=== PATIENT | female | born 1960 | race Caucasian/White ===

== ENCOUNTER 2020-06-21 19:01 | Inpatient (IN) ==
[2020-06-22] MEDS: Furosemide 40 MG TABLET PO SCH (22:19)
[2020-06-22] MEDS: *HR* OxyCODONE Immed Rel 5 MG TABLET PO PRN (22:19)
[2020-06-22] MEDS: lamoTRIgine 100 MG TABLET PO SCH (22:19)
[2020-06-22] MEDS: Carbidopa/Levodopa ER 50/200 TABLET PO SCH (22:19)
[2020-06-23] MEDS: Baclofen 10 MG TABLET PO PRN ×2 (00:59→13:04)
[2020-06-23] MEDS: lamoTRIgine 100 MG TABLET PO SCH ×2 (08:06→19:41)
[2020-06-23] MEDS: Aspirin Enteric Coated 81 MG Tablet PO SCH (08:06)
[2020-06-23] MEDS: Cholecalciferol (D-3) 1,000 UNIT (25MCG) TABLET PO SCH (08:07)
[2020-06-23] MEDS: PARoxetine 20 MG TABLET PO SCH (08:07)
[2020-06-23] MEDS: *HR* OxyCODONE Immed Rel 5 MG TABLET PO PRN ×2 (08:07→17:22)
[2020-06-23] MEDS: Ascorbic Acid 500 MG TABLET PO SCH ×2 (08:07→16:24)
[2020-06-23] MEDS: Furosemide 40 MG TABLET PO SCH ×2 (08:07→19:41)
[2020-06-23] MEDS: Zinc Sulfate 220 MG CAPSULE PO SCH (08:07)
[2020-06-23] MEDS: Carbidopa/Levodopa ER 50/200 TABLET PO SCH ×2 (08:08→19:41)
[2020-06-23 08:33] LABS: Hematocrit 34.6 % (35.3-44.9); Hemoglobin 11.1 g/dL (11.5-15.4); Mean Corpuscular HGB Conc 32.1 g/dL (31.6-35.5); Mean Corpuscular Hemoglobin 31.2 pg (28.0-33.3); Mean Corpuscular Volume 97.2 fL (83.0-100.0); Mean Platelet Volume 8.5 fL (9.4-12.4); Platelet Count 248 K/mcL (140-400); Red Blood Count 3.56 M/mcL (3.82-4.97); Red Cell Distribution Width 15.7 % (11.5-14.5)
[2020-06-23 08:57] LABS: BUN/Creatinine Ratio 16 (6-26); Blood Urea Nitrogen 8 mg/dL (6-20); Calcium 9.2 mg/dL (8.6-10.3); Carbon Dioxide 34 mEq/L (23-29); Chloride 102 mEq/L (98-107); Glucose 89 mg/dL (70-105); Osmolality,Calculated 288 (280-300); Sodium 140 mEq/L (136-145); eGFR For African Americans > 60 (> 60); eGFR For Non-African Americans > 60 (> 60)
[2020-06-23] MEDS: Multivit/Ca/Min/Fe/FA 1 TAB TABLET PO SCH (13:04)
[2020-06-23] MEDS: Baclofen 10 MG TABLET PO SCH ×2 (14:05→19:40)
[2020-06-24] MEDS: *HR* OxyCODONE Immed Rel 5 MG TABLET PO PRN ×3 (01:24→18:05)
[2020-06-24] MEDS: Carbidopa/Levodopa ER 50/200 TABLET PO SCH ×2 (08:19→21:22)
[2020-06-24] MEDS: Cholecalciferol (D-3) 1,000 UNIT (25MCG) TABLET PO SCH (08:19)
[2020-06-24] MEDS: Aspirin Enteric Coated 81 MG Tablet PO SCH (08:19)
[2020-06-24] MEDS: lamoTRIgine 100 MG TABLET PO SCH ×2 (08:19→21:23)
[2020-06-24] MEDS: Zinc Sulfate 220 MG CAPSULE PO SCH (08:19)
[2020-06-24] MEDS: Baclofen 10 MG TABLET PO SCH ×3 (08:19→21:23)
[2020-06-24] MEDS: PARoxetine 20 MG TABLET PO SCH (08:20)
[2020-06-24] MEDS: Ascorbic Acid 500 MG TABLET PO SCH ×2 (08:20→16:55)
[2020-06-24] MEDS: Furosemide 40 MG TABLET PO SCH ×2 (09:38→16:55)
[2020-06-24] MEDS: *HR* Enoxaparin 40 MG/0.4 ML SYRINGE SQ SCH (10:19)
[2020-06-24] MEDS: Multivit/Ca/Min/Fe/FA 1 TAB TABLET PO SCH (12:11)
[2020-06-24] MEDS ORDERED: *HR* Heparin 5,000 UNIT/ML VIAL SQ SCH (14:00)
[2020-06-24] MEDS: Sennosides/Docusate Sodium TABLET PO PRN (21:22)
[2020-06-25] MEDS: *HR* OxyCODONE Immed Rel 5 MG TABLET PO PRN ×3 (02:19→20:34)
[2020-06-25] MEDS: *HR* Enoxaparin 40 MG/0.4 ML SYRINGE SQ SCH (05:04)
[2020-06-25] MEDS: Baclofen 10 MG TABLET PO SCH ×3 (07:57→20:34)
[2020-06-25] MEDS: lamoTRIgine 100 MG TABLET PO SCH ×2 (07:57→20:34)
[2020-06-25] MEDS: Zinc Sulfate 220 MG CAPSULE PO SCH (07:57)
[2020-06-25] MEDS: Ascorbic Acid 500 MG TABLET PO SCH ×2 (07:57→16:49)
[2020-06-25] MEDS: Cholecalciferol (D-3) 1,000 UNIT (25MCG) TABLET PO SCH (07:58)
[2020-06-25] MEDS: Furosemide 40 MG TABLET PO SCH ×2 (07:59→16:49)
[2020-06-25] MEDS: Aspirin Enteric Coated 81 MG Tablet PO SCH (07:59)
[2020-06-25] MEDS: Sennosides/Docusate Sodium TABLET PO PRN ×2 (08:00→20:34)
[2020-06-25] MEDS: PARoxetine 20 MG TABLET PO SCH (08:01)
[2020-06-25] MEDS: Carbidopa/Levodopa ER 50/200 TABLET PO SCH ×2 (08:02→20:34)
[2020-06-25] MEDS: Multivit/Ca/Min/Fe/FA 1 TAB TABLET PO SCH (11:41)
[2020-06-25] MEDS: *HR* FentaNYL PATCH 50 MCG PATCH TD SCH (16:49)
[2020-06-26] MEDS: *HR* OxyCODONE Immed Rel 5 MG TABLET PO PRN ×3 (05:02→22:07)
[2020-06-26] MEDS: *HR* Enoxaparin 40 MG/0.4 ML SYRINGE SQ SCH (05:02)
[2020-06-26] MEDS: Baclofen 10 MG TABLET PO SCH ×3 (08:58→19:40)
[2020-06-26] MEDS: Carbidopa/Levodopa ER 50/200 TABLET PO SCH ×2 (08:59→19:40)
[2020-06-26] MEDS: Furosemide 40 MG TABLET PO SCH ×2 (08:59→17:03)
[2020-06-26] MEDS: Zinc Sulfate 220 MG CAPSULE PO SCH (08:59)
[2020-06-26] MEDS: lamoTRIgine 100 MG TABLET PO SCH ×2 (08:59→19:40)
[2020-06-26] MEDS: PARoxetine 20 MG TABLET PO SCH (08:59)
[2020-06-26] MEDS: Ascorbic Acid 500 MG TABLET PO SCH ×2 (08:59→17:03)
[2020-06-26] MEDS: Cholecalciferol (D-3) 1,000 UNIT (25MCG) TABLET PO SCH (08:59)
[2020-06-26] MEDS: Aspirin Enteric Coated 81 MG Tablet PO SCH (08:59)
[2020-06-26] MEDS: Multivit/Ca/Min/Fe/FA 1 TAB TABLET PO SCH (13:41)
[2020-06-27] MEDS: *HR* Enoxaparin 40 MG/0.4 ML SYRINGE SQ SCH (05:23)
[2020-06-27] MEDS: *HR* OxyCODONE Immed Rel 5 MG TABLET PO PRN ×3 (06:20→22:34)
[2020-06-27] MEDS: Furosemide 40 MG TABLET PO SCH ×2 (09:45→17:29)
[2020-06-27] MEDS: Carbidopa/Levodopa ER 50/200 TABLET PO SCH ×2 (09:45→19:50)
[2020-06-27] MEDS: Cholecalciferol (D-3) 1,000 UNIT (25MCG) TABLET PO SCH (09:45)
[2020-06-27] MEDS: Aspirin Enteric Coated 81 MG Tablet PO SCH (09:46)
[2020-06-27] MEDS: lamoTRIgine 100 MG TABLET PO SCH ×2 (09:46→19:50)
[2020-06-27] MEDS: PARoxetine 20 MG TABLET PO SCH (09:46)
[2020-06-27] MEDS: Zinc Sulfate 220 MG CAPSULE PO SCH (09:46)
[2020-06-27] MEDS: Baclofen 10 MG TABLET PO SCH ×3 (09:46→19:50)
[2020-06-27] MEDS: Ascorbic Acid 500 MG TABLET PO SCH ×2 (09:47→17:28)
[2020-06-27] MEDS: Multivit/Ca/Min/Fe/FA 1 TAB TABLET PO SCH (12:12)
[2020-06-28] MEDS: *HR* Enoxaparin 40 MG/0.4 ML SYRINGE SQ SCH (05:49)
[2020-06-28] MEDS: *HR* OxyCODONE Immed Rel 5 MG TABLET PO PRN ×3 (08:02→20:39)
[2020-06-28] MEDS: Ascorbic Acid 500 MG TABLET PO SCH ×2 (08:03→18:03)
[2020-06-28] MEDS: Furosemide 40 MG TABLET PO SCH ×2 (08:03→18:04)
[2020-06-28] MEDS: Zinc Sulfate 220 MG CAPSULE PO SCH (08:03)
[2020-06-28] MEDS: Cholecalciferol (D-3) 1,000 UNIT (25MCG) TABLET PO SCH (08:03)
[2020-06-28] MEDS: PARoxetine 20 MG TABLET PO SCH (08:04)
[2020-06-28] MEDS: lamoTRIgine 100 MG TABLET PO SCH ×2 (08:04→20:40)
[2020-06-28] MEDS: Carbidopa/Levodopa ER 50/200 TABLET PO SCH ×2 (08:04→20:39)
[2020-06-28] MEDS: Baclofen 10 MG TABLET PO SCH ×3 (08:04→20:39)
[2020-06-28] MEDS: Aspirin Enteric Coated 81 MG Tablet PO SCH (08:04)
[2020-06-28] MEDS ORDERED: diazePAM 10 MG/2 ML SYRINGE IVP ONE (11:09)
[2020-06-28] MEDS ORDERED: diazePAM 5 MG TABLET PO ONE (12:00)
[2020-06-28] MEDS: Multivit/Ca/Min/Fe/FA 1 TAB TABLET PO SCH (12:09)
[2020-06-28] MEDS: *HR* FentaNYL PATCH 50 MCG PATCH TD SCH (18:04)
[2020-06-29] MEDS: *HR* OxyCODONE Immed Rel 5 MG TABLET PO PRN ×5 (01:43→20:12)
[2020-06-29] MEDS: *HR* Enoxaparin 40 MG/0.4 ML SYRINGE SQ SCH (05:34)
[2020-06-29] MEDS: Ascorbic Acid 500 MG TABLET PO SCH ×2 (09:49→16:41)
[2020-06-29] MEDS: Aspirin Enteric Coated 81 MG Tablet PO SCH (09:49)
[2020-06-29] MEDS: PARoxetine 20 MG TABLET PO SCH (09:49)
[2020-06-29] MEDS: Baclofen 10 MG TABLET PO SCH ×3 (09:50→20:12)
[2020-06-29] MEDS: Carbidopa/Levodopa ER 50/200 TABLET PO SCH ×2 (09:50→20:13)
[2020-06-29] MEDS: Zinc Sulfate 220 MG CAPSULE PO SCH (09:50)
[2020-06-29] MEDS: Furosemide 40 MG TABLET PO SCH ×2 (09:50→16:41)
[2020-06-29] MEDS: Cholecalciferol (D-3) 1,000 UNIT (25MCG) TABLET PO SCH (09:50)
[2020-06-29] MEDS: lamoTRIgine 100 MG TABLET PO SCH ×2 (09:50→20:12)
[2020-06-29] MEDS: Multivit/Ca/Min/Fe/FA 1 TAB TABLET PO SCH (11:25)
[2020-06-30] MEDS: *HR* OxyCODONE Immed Rel 5 MG TABLET PO PRN ×5 (00:23→21:36)
[2020-06-30] MEDS: *HR* Enoxaparin 40 MG/0.4 ML SYRINGE SQ SCH (05:37)
[2020-06-30] MEDS: Carbidopa/Levodopa ER 50/200 TABLET PO SCH ×2 (07:36→21:36)
[2020-06-30] MEDS: Baclofen 10 MG TABLET PO SCH ×3 (07:36→21:35)
[2020-06-30] MEDS: Aspirin Enteric Coated 81 MG Tablet PO SCH (07:36)
[2020-06-30] MEDS: Zinc Sulfate 220 MG CAPSULE PO SCH (07:36)
[2020-06-30] MEDS: PARoxetine 20 MG TABLET PO SCH (07:37)
[2020-06-30] MEDS: lamoTRIgine 100 MG TABLET PO SCH ×2 (07:37→21:36)
[2020-06-30] MEDS: Cholecalciferol (D-3) 1,000 UNIT (25MCG) TABLET PO SCH (07:37)
[2020-06-30] MEDS: Furosemide 40 MG TABLET PO SCH ×2 (07:37→17:25)
[2020-06-30] MEDS: Ascorbic Acid 500 MG TABLET PO SCH ×2 (07:37→17:25)
[2020-06-30] MEDS: Multivit/Ca/Min/Fe/FA 1 TAB TABLET PO SCH (10:11)
[2020-06-30] MEDS: Sennosides/Docusate Sodium TABLET PO PRN (21:40)
[2020-07-01] MEDS: *HR* OxyCODONE Immed Rel 5 MG TABLET PO PRN ×4 (03:26→21:18)
[2020-07-01] MEDS: *HR* Enoxaparin 40 MG/0.4 ML SYRINGE SQ SCH (06:15)
[2020-07-01] MEDS: diazePAM 5 MG TABLET PO SCH (10:21)
[2020-07-01] MEDS: Aspirin Enteric Coated 81 MG Tablet PO SCH (10:22)
[2020-07-01] MEDS: Furosemide 40 MG TABLET PO SCH ×2 (10:22→16:53)
[2020-07-01] MEDS: Carbidopa/Levodopa ER 50/200 TABLET PO SCH ×2 (10:22→21:18)
[2020-07-01] MEDS: PARoxetine 20 MG TABLET PO SCH (10:22)
[2020-07-01] MEDS: Ascorbic Acid 500 MG TABLET PO SCH ×2 (10:22→16:53)
[2020-07-01] MEDS: Cholecalciferol (D-3) 1,000 UNIT (25MCG) TABLET PO SCH (10:22)
[2020-07-01] MEDS: Baclofen 10 MG TABLET PO SCH ×3 (10:23→21:18)
[2020-07-01] MEDS: lamoTRIgine 100 MG TABLET PO SCH ×2 (10:23→21:19)
[2020-07-01] MEDS: Zinc Sulfate 220 MG CAPSULE PO SCH (10:24)
[2020-07-01] MEDS: *HR* FentaNYL PATCH 50 MCG PATCH TD SCH (16:53)
[2020-07-01] MEDS: Sennosides/Docusate Sodium TABLET PO PRN (21:21)
[2020-07-02] MEDS: *HR* OxyCODONE Immed Rel 5 MG TABLET PO PRN ×5 (02:10→20:18)
[2020-07-02] MEDS: *HR* Enoxaparin 40 MG/0.4 ML SYRINGE SQ SCH (06:13)
[2020-07-02] MEDS: Furosemide 40 MG TABLET PO SCH ×2 (09:58→17:27)
[2020-07-02] MEDS: Cholecalciferol (D-3) 1,000 UNIT (25MCG) TABLET PO SCH (09:58)
[2020-07-02] MEDS: Baclofen 10 MG TABLET PO SCH ×3 (09:58→20:18)
[2020-07-02] MEDS: lamoTRIgine 100 MG TABLET PO SCH ×2 (09:59→20:18)
[2020-07-02] MEDS: diazePAM 5 MG TABLET PO SCH (09:59)
[2020-07-02] MEDS: Carbidopa/Levodopa ER 50/200 TABLET PO SCH ×2 (09:59→20:18)
[2020-07-02] MEDS: PARoxetine 20 MG TABLET PO SCH (09:59)
[2020-07-02] MEDS: Ascorbic Acid 500 MG TABLET PO SCH ×2 (10:00→17:27)
[2020-07-02] MEDS: Zinc Sulfate 220 MG CAPSULE PO SCH (10:00)
[2020-07-02] MEDS: Aspirin Enteric Coated 81 MG Tablet PO SCH (10:00)
[2020-07-03] MEDS: *HR* OxyCODONE Immed Rel 5 MG TABLET PO PRN ×4 (03:39→20:37)
[2020-07-03] MEDS: *HR* Enoxaparin 40 MG/0.4 ML SYRINGE SQ SCH (06:14)
[2020-07-03 07:32] LABS: Basophils # 0.1 K/mcL (0.0-0.2); Basophils % 0.6 %; Eosinophils # 0.6 K/mcL (0.0-0.6); Eosinophils % 7.7 %; Hematocrit 34.9 % (35.3-44.9); Hemoglobin 11.1 g/dL (11.5-15.4); Immature Granulocytes % 0.3 % (0-4); Lymphocytes # 1.5 K/mcL (0.6-4.6); Lymphocytes % 19.5 %; Mean Corpuscular HGB Conc 31.8 g/dL (31.6-35.5); Mean Corpuscular Hemoglobin 30.9 pg (28.0-33.3); Mean Corpuscular Volume 97.2 fL (83.0-100.0); Mean Platelet Volume 8.2 fL (9.4-12.4); Monocytes # 0.5 K/mcL (0.0-1.3); Monocytes % 6.7 %; Neutrophils # 5.1 K/mcL (1.6-8.9); Platelet Count 363 K/mcL (140-400); Red Blood Count 3.59 M/mcL (3.82-4.97); Red Cell Distribution Width 14.7 % (11.5-14.5); Segmented Neutrophils % 65.2 %; White Blood Count 7.8 K/mcL (4.3-11.1)
[2020-07-03 07:49] LABS: BUN/Creatinine Ratio 22 (6-26); Blood Urea Nitrogen 13 mg/dL (6-20); Calcium 9.2 mg/dL (8.6-10.3); Carbon Dioxide 35 mEq/L (23-29); Chloride 100 mEq/L (98-107); Glucose 99 mg/dL (70-105); Osmolality,Calculated 288 (280-300); Sodium 139 mEq/L (136-145); eGFR For African Americans > 60 (> 60); eGFR For Non-African Americans > 60 (> 60)
[2020-07-03] MEDS: Aspirin Enteric Coated 81 MG Tablet PO SCH (07:51)
[2020-07-03] MEDS: Furosemide 40 MG TABLET PO SCH ×2 (07:51→16:37)
[2020-07-03] MEDS: lamoTRIgine 100 MG TABLET PO SCH ×2 (07:52→20:37)
[2020-07-03] MEDS: Carbidopa/Levodopa ER 50/200 TABLET PO SCH ×2 (07:52→20:37)
[2020-07-03] MEDS: Cholecalciferol (D-3) 1,000 UNIT (25MCG) TABLET PO SCH (07:52)
[2020-07-03] MEDS: Baclofen 10 MG TABLET PO SCH ×3 (07:52→20:37)
[2020-07-03] MEDS: Ascorbic Acid 500 MG TABLET PO SCH ×2 (07:53→16:37)
[2020-07-03] MEDS: diazePAM 5 MG TABLET PO SCH (07:53)
[2020-07-03] MEDS: Zinc Sulfate 220 MG CAPSULE PO SCH (07:53)
[2020-07-03] MEDS: PARoxetine 20 MG TABLET PO SCH (07:53)
[2020-07-04] MEDS: *HR* OxyCODONE Immed Rel 5 MG TABLET PO PRN ×3 (00:20→10:12)
[2020-07-04 06:18] VITALS: BP 112/70
[2020-07-04] MEDS: *HR* Enoxaparin 40 MG/0.4 ML SYRINGE SQ SCH (06:25)
[2020-07-04] MEDS: Aspirin Enteric Coated 81 MG Tablet PO SCH (10:12)
[2020-07-04] MEDS: Zinc Sulfate 220 MG CAPSULE PO SCH (10:12)
[2020-07-04] MEDS: PARoxetine 20 MG TABLET PO SCH (10:12)
[2020-07-04] MEDS: Cholecalciferol (D-3) 1,000 UNIT (25MCG) TABLET PO SCH (10:12)
[2020-07-04] MEDS: Ascorbic Acid 500 MG TABLET PO SCH (10:12)
[2020-07-04] MEDS: Carbidopa/Levodopa ER 50/200 TABLET PO SCH (10:13)
[2020-07-04] MEDS: Baclofen 10 MG TABLET PO SCH (10:13)
[2020-07-04] MEDS: diazePAM 5 MG TABLET PO SCH (10:13)
[2020-07-04] MEDS: lamoTRIgine 100 MG TABLET PO SCH (10:13)
[2020-07-04] MEDS: Furosemide 40 MG TABLET PO SCH (10:13)
== END 2020-07-04 10:53 | disposition home health service (06) | DRG 561 ==
LOC: INPPIK 06-22 21:29
PROVIDERS: ADMIT Family Medicine; ATTEND Internal Medicine

== ENCOUNTER 2021-06-03 15:06 | Inpatient (IN) ==
[2021-06-03] MEDS ORDERED: Acetaminophen 325 MG TABLET PO PRN (15:54)
[2021-06-03] MEDS ORDERED: NON-FORMULARY MEDICATION 1 EACH EACH (Cefazolin [Ancef Premix 2 Gm/100 Ml] 2 GM/100 ML Bag IVPB SCH (16:00)
[2021-06-03] MEDS: rifAMPin 150 MG CAPSULE PO SCH (16:35)
[2021-06-03] MEDS: *HR* OxyCODONE Immed Rel 5 MG TABLET PO PRN ×2 (16:35→20:44)
[2021-06-03] MEDS: Furosemide 40 MG TABLET PO SCH (16:36)
[2021-06-03] MEDS: ceFAZolin 2,000 MG in 0.9 % Sodium Chloride 100 ML IVPB SCH (17:56)
[2021-06-03] MEDS: *HR* Heparin 5,000 UNIT/ML VIAL SQ SCH (18:10)
[2021-06-03] MEDS: Baclofen 10 MG TABLET PO SCH (20:42)
[2021-06-03] MEDS: Carbidopa/Levodopa ER 50/200 TABLET PO SCH (20:42)
[2021-06-03] MEDS: lamoTRIgine 100 MG TABLET PO SCH (20:42)
[2021-06-04] MEDS: ceFAZolin 2,000 MG in 0.9 % Sodium Chloride 100 ML IVPB SCH ×3 (00:47→15:26)
[2021-06-04] MEDS: *HR* Heparin 5,000 UNIT/ML VIAL SQ SCH ×2 (06:29→18:39)
[2021-06-04] MEDS: *HR* OxyCODONE Immed Rel 5 MG TABLET PO PRN (06:30)
[2021-06-04 07:29] LABS: Basophils # 0.1 K/mcL (0.0-0.2); Basophils % 0.8 %; Eosinophils # 0.7 K/mcL (0.0-0.6); Eosinophils % 6.8 %; Hematocrit 36.5 % (35.3-44.9); Hemoglobin 11.7 g/dL (11.5-15.4); Immature Granulocytes % 1.4 % (0-4); Lymphocytes # 1.2 K/mcL (0.6-4.6); Lymphocytes % 11.6 %; Mean Corpuscular HGB Conc 32.1 g/dL (31.6-35.5); Mean Corpuscular Hemoglobin 29.8 pg (28.0-33.3); Mean Corpuscular Volume 93.1 fL (83.0-100.0); Mean Platelet Volume 7.9 fL (9.4-12.4); Monocytes # 0.8 K/mcL (0.0-1.3); Monocytes % 7.4 %; Neutrophils # 7.5 K/mcL (1.6-8.9); Platelet Count 565 K/mcL (140-400); Red Blood Count 3.92 M/mcL (3.82-4.97); Red Cell Distribution Width 13.6 % (11.5-14.5); White Blood Count 10.3 K/mcL (4.3-11.1)
[2021-06-04 08:01] LABS: BUN/Creatinine Ratio 19 (6-26); Blood Urea Nitrogen 13 mg/dL (8-23); Calcium 9.5 mg/dL (8.6-10.3); Carbon Dioxide 29 mEq/L (23-29); Chloride 103 mEq/L (98-107); Glucose 100 mg/dL (70-105); Osmolality,Calculated 290 (280-300); Potassium 3.8 mEq/L (3.5-5.1); Sodium 140 mEq/L (136-145); eGFR For African Americans > 60 (> 60); eGFR For Non-African Americans > 60 (> 60)
[2021-06-04] MEDS: Multivit/Ca/Min/Fe/FA 1 TAB TABLET PO SCH (08:07)
[2021-06-04] MEDS: rifAMPin 150 MG CAPSULE PO SCH ×2 (08:07→15:25)
[2021-06-04] MEDS: Aspirin Enteric Coated 81 MG Tablet PO SCH (08:07)
[2021-06-04] MEDS: Carbidopa/Levodopa ER 50/200 TABLET PO SCH ×2 (08:07→20:51)
[2021-06-04] MEDS: Baclofen 10 MG TABLET PO SCH ×3 (08:07→20:51)
[2021-06-04] MEDS: Cholecalciferol (D-3) 1,000 UNIT (25MCG) TABLET PO SCH (08:07)
[2021-06-04] MEDS: lamoTRIgine 100 MG TABLET PO SCH ×2 (08:08→20:51)
[2021-06-04] MEDS: Furosemide 40 MG TABLET PO SCH ×2 (08:08→15:25)
[2021-06-04] MEDS: PARoxetine 20 MG TABLET PO SCH (08:08)
[2021-06-04] MEDS ORDERED: *HR* OxyCODONE Immed Rel 5 MG TABLET PO PRN (15:39)
[2021-06-04] MEDS: *HR* OxyCODONE Immed Rel 5 MG TABLET PO SCH (16:21)
[2021-06-04] MEDS: *HR* FentaNYL PATCH 50 MCG PATCH TD SCH (20:52)
[2021-06-05] MEDS: *HR* OxyCODONE Immed Rel 5 MG TABLET PO SCH ×4 (00:15→23:59)
[2021-06-05] MEDS: ceFAZolin 2,000 MG in 0.9 % Sodium Chloride 100 ML IVPB SCH ×3 (00:33→16:20)
[2021-06-05] MEDS: *HR* Heparin 5,000 UNIT/ML VIAL SQ SCH ×2 (05:44→17:12)
[2021-06-05] MEDS: Aspirin Enteric Coated 81 MG Tablet PO SCH (08:01)
[2021-06-05] MEDS: rifAMPin 150 MG CAPSULE PO SCH ×2 (08:02→16:05)
[2021-06-05] MEDS: PARoxetine 20 MG TABLET PO SCH (08:02)
[2021-06-05] MEDS: Carbidopa/Levodopa ER 50/200 TABLET PO SCH ×2 (08:02→20:07)
[2021-06-05] MEDS: Baclofen 10 MG TABLET PO SCH ×3 (08:03→20:07)
[2021-06-05] MEDS: Cholecalciferol (D-3) 1,000 UNIT (25MCG) TABLET PO SCH (08:03)
[2021-06-05] MEDS: Multivit/Ca/Min/Fe/FA 1 TAB TABLET PO SCH (08:05)
[2021-06-05] MEDS: lamoTRIgine 100 MG TABLET PO SCH ×2 (08:05→20:07)
[2021-06-05] MEDS: Furosemide 40 MG TABLET PO SCH ×2 (08:05→16:06)
[2021-06-06] MEDS: *HR* Heparin 5,000 UNIT/ML VIAL SQ SCH ×2 (05:38→17:46)
[2021-06-06] MEDS: Furosemide 40 MG TABLET PO SCH ×2 (08:10→16:03)
[2021-06-06] MEDS: PARoxetine 20 MG TABLET PO SCH (08:10)
[2021-06-06] MEDS: Multivit/Ca/Min/Fe/FA 1 TAB TABLET PO SCH (08:10)
[2021-06-06] MEDS: *HR* OxyCODONE Immed Rel 5 MG TABLET PO SCH ×2 (08:11→16:02)
[2021-06-06] MEDS: Aspirin Enteric Coated 81 MG Tablet PO SCH (08:12)
[2021-06-06] MEDS: Baclofen 10 MG TABLET PO SCH ×3 (08:12→20:38)
[2021-06-06] MEDS: Carbidopa/Levodopa ER 50/200 TABLET PO SCH ×2 (08:12→20:38)
[2021-06-06] MEDS: lamoTRIgine 100 MG TABLET PO SCH ×2 (08:12→20:38)
[2021-06-06] MEDS: rifAMPin 150 MG CAPSULE PO SCH ×2 (08:12→16:03)
[2021-06-06] MEDS: Cholecalciferol (D-3) 1,000 UNIT (25MCG) TABLET PO SCH (08:13)
[2021-06-06] MEDS: ceFAZolin 2,000 MG in 0.9 % Sodium Chloride 100 ML IVPB SCH ×3 (08:25→16:03)
[2021-06-07] MEDS: *HR* OxyCODONE Immed Rel 5 MG TABLET PO SCH ×4 (00:09→23:00)
[2021-06-07] MEDS: ceFAZolin 2,000 MG in 0.9 % Sodium Chloride 100 ML IVPB SCH ×4 (00:10→23:00)
[2021-06-07] MEDS: *HR* Heparin 5,000 UNIT/ML VIAL SQ SCH ×2 (05:59→18:19)
[2021-06-07] MEDS: Baclofen 10 MG TABLET PO SCH ×3 (07:37→20:05)
[2021-06-07] MEDS: Furosemide 40 MG TABLET PO SCH ×2 (07:37→16:11)
[2021-06-07] MEDS: PARoxetine 20 MG TABLET PO SCH (07:37)
[2021-06-07] MEDS: Aspirin Enteric Coated 81 MG Tablet PO SCH (07:37)
[2021-06-07] MEDS: rifAMPin 150 MG CAPSULE PO SCH ×2 (07:37→16:11)
[2021-06-07] MEDS: Cholecalciferol (D-3) 1,000 UNIT (25MCG) TABLET PO SCH (07:38)
[2021-06-07] MEDS: Multivit/Ca/Min/Fe/FA 1 TAB TABLET PO SCH (07:38)
[2021-06-07] MEDS: Carbidopa/Levodopa ER 50/200 TABLET PO SCH ×2 (07:38→20:05)
[2021-06-07] MEDS: lamoTRIgine 100 MG TABLET PO SCH ×2 (07:38→20:05)
[2021-06-07] MEDS: *HR* FentaNYL PATCH 50 MCG PATCH TD SCH (20:06)
[2021-06-08] MEDS: *HR* Heparin 5,000 UNIT/ML VIAL SQ SCH ×2 (05:23→17:16)
[2021-06-08] MEDS: Baclofen 10 MG TABLET PO SCH ×3 (07:48→21:32)
[2021-06-08] MEDS: Aspirin Enteric Coated 81 MG Tablet PO SCH (07:48)
[2021-06-08] MEDS: Furosemide 40 MG TABLET PO SCH ×2 (07:48→17:17)
[2021-06-08] MEDS: Cholecalciferol (D-3) 1,000 UNIT (25MCG) TABLET PO SCH (07:48)
[2021-06-08] MEDS: Carbidopa/Levodopa ER 50/200 TABLET PO SCH ×2 (07:49→21:32)
[2021-06-08] MEDS: rifAMPin 150 MG CAPSULE PO SCH ×2 (07:49→17:17)
[2021-06-08] MEDS: lamoTRIgine 100 MG TABLET PO SCH ×2 (07:49→21:32)
[2021-06-08] MEDS: *HR* OxyCODONE Immed Rel 5 MG TABLET PO SCH ×3 (07:49→21:33)
[2021-06-08] MEDS: PARoxetine 20 MG TABLET PO SCH (07:49)
[2021-06-08] MEDS: ceFAZolin 2,000 MG in 0.9 % Sodium Chloride 100 ML IVPB SCH ×2 (07:50→17:16)
[2021-06-08] MEDS: Multivit/Ca/Min/Fe/FA 1 TAB TABLET PO SCH (07:50)
[2021-06-09] MEDS: ceFAZolin 2,000 MG in 0.9 % Sodium Chloride 100 ML IVPB SCH ×4 (00:14→23:57)
[2021-06-09] MEDS: *HR* Heparin 5,000 UNIT/ML VIAL SQ SCH ×2 (06:22→16:05)
[2021-06-09] MEDS: *HR* OxyCODONE Immed Rel 5 MG TABLET PO SCH ×3 (06:23→21:50)
[2021-06-09] MEDS: Baclofen 10 MG TABLET PO SCH ×3 (06:23→20:36)
[2021-06-09 07:24] LABS: Basophils # 0.1 K/mcL (0.0-0.2); Basophils % 1.4 %; Eosinophils # 0.4 K/mcL (0.0-0.6); Eosinophils % 4.7 %; Hematocrit 36.9 % (35.3-44.9); Hemoglobin 11.9 g/dL (11.5-15.4); Lymphocytes # 1.4 K/mcL (0.6-4.6); Lymphocytes % 17.4 %; Mean Corpuscular HGB Conc 32.2 g/dL (31.6-35.5); Mean Corpuscular Hemoglobin 30.4 pg (28.0-33.3); Mean Corpuscular Volume 94.1 fL (83.0-100.0); Mean Platelet Volume 8.1 fL (9.4-12.4); Monocytes # 0.7 K/mcL (0.0-1.3); Monocytes % 9.2 %; Neutrophils # 5.3 K/mcL (1.6-8.9); Platelet Count 504 K/mcL (140-400); Red Blood Count 3.92 M/mcL (3.82-4.97); Red Cell Distribution Width 13.9 % (11.5-14.5); Segmented Neutrophils % 66.3 %; White Blood Count 8.1 K/mcL (4.3-11.1)
[2021-06-09 08:20] LABS: BUN/Creatinine Ratio 20 (6-26); Blood Urea Nitrogen 15 mg/dL (8-23); Calcium 9.3 mg/dL (8.6-10.3); Carbon Dioxide 32 mEq/L (23-29); Chloride 98 mEq/L (98-107); Glucose 96 mg/dL (70-105); Osmolality,Calculated 287 (280-300); Potassium 3.3 mEq/L (3.5-5.1); Sodium 138 mEq/L (136-145); eGFR For African Americans > 60 (> 60); eGFR For Non-African Americans > 60 (> 60)
[2021-06-09] MEDS: Furosemide 40 MG TABLET PO SCH ×2 (08:46→16:06)
[2021-06-09] MEDS: Carbidopa/Levodopa ER 50/200 TABLET PO SCH ×2 (08:49→20:37)
[2021-06-09] MEDS: rifAMPin 150 MG CAPSULE PO SCH ×2 (08:49→16:06)
[2021-06-09] MEDS: PARoxetine 20 MG TABLET PO SCH (08:49)
[2021-06-09] MEDS: Aspirin Enteric Coated 81 MG Tablet PO SCH (08:49)
[2021-06-09] MEDS: Cholecalciferol (D-3) 1,000 UNIT (25MCG) TABLET PO SCH (08:50)
[2021-06-09] MEDS: lamoTRIgine 100 MG TABLET PO SCH ×2 (08:50→20:37)
[2021-06-09] MEDS: Multivit/Ca/Min/Fe/FA 1 TAB TABLET PO SCH (08:51)
[2021-06-09 15:07] LABS: C-Reactive Protein 65 mg/L (Less than 10)
[2021-06-10] MEDS: Baclofen 10 MG TABLET PO SCH ×3 (05:46→22:05)
[2021-06-10] MEDS: *HR* OxyCODONE Immed Rel 5 MG TABLET PO SCH ×3 (05:47→22:04)
[2021-06-10] MEDS: *HR* Heparin 5,000 UNIT/ML VIAL SQ SCH ×2 (05:48→16:58)
[2021-06-10] MEDS: Carbidopa/Levodopa ER 50/200 TABLET PO SCH ×2 (08:44→20:26)
[2021-06-10] MEDS: rifAMPin 150 MG CAPSULE PO SCH ×2 (08:44→16:57)
[2021-06-10] MEDS: Multivit/Ca/Min/Fe/FA 1 TAB TABLET PO SCH (08:44)
[2021-06-10] MEDS: Aspirin Enteric Coated 81 MG Tablet PO SCH (08:44)
[2021-06-10] MEDS: lamoTRIgine 100 MG TABLET PO SCH ×2 (08:44→20:26)
[2021-06-10] MEDS: PARoxetine 20 MG TABLET PO SCH (08:44)
[2021-06-10] MEDS: Cholecalciferol (D-3) 1,000 UNIT (25MCG) TABLET PO SCH (08:45)
[2021-06-10] MEDS: ceFAZolin 2,000 MG in 0.9 % Sodium Chloride 100 ML IVPB SCH ×3 (08:45→23:37)
[2021-06-10] MEDS: Furosemide 40 MG TABLET PO SCH ×2 (08:45→16:58)
[2021-06-10] MEDS: *HR* FentaNYL PATCH 50 MCG PATCH TD SCH (20:27)
[2021-06-11] MEDS: Baclofen 10 MG TABLET PO SCH ×3 (05:42→21:15)
[2021-06-11] MEDS: *HR* Heparin 5,000 UNIT/ML VIAL SQ SCH ×2 (05:42→18:03)
[2021-06-11] MEDS: *HR* OxyCODONE Immed Rel 5 MG TABLET PO SCH ×3 (05:43→21:15)
[2021-06-11] MEDS: Aspirin Enteric Coated 81 MG Tablet PO SCH (07:51)
[2021-06-11] MEDS: Multivit/Ca/Min/Fe/FA 1 TAB TABLET PO SCH (07:51)
[2021-06-11] MEDS: Furosemide 40 MG TABLET PO SCH ×2 (07:51→15:58)
[2021-06-11] MEDS: Cholecalciferol (D-3) 1,000 UNIT (25MCG) TABLET PO SCH (07:51)
[2021-06-11] MEDS: rifAMPin 150 MG CAPSULE PO SCH ×2 (07:51→15:58)
[2021-06-11] MEDS: ceFAZolin 2,000 MG in 0.9 % Sodium Chloride 100 ML IVPB SCH ×3 (07:52→23:42)
[2021-06-11] MEDS: PARoxetine 20 MG TABLET PO SCH (07:52)
[2021-06-11] MEDS: lamoTRIgine 100 MG TABLET PO SCH ×2 (07:52→21:15)
[2021-06-11] MEDS: Carbidopa/Levodopa ER 50/200 TABLET PO SCH ×2 (07:52→21:15)
[2021-06-12] MEDS: *HR* OxyCODONE Immed Rel 5 MG TABLET PO SCH ×3 (05:43→20:22)
[2021-06-12] MEDS: *HR* Heparin 5,000 UNIT/ML VIAL SQ SCH ×2 (05:43→18:08)
[2021-06-12] MEDS: Baclofen 10 MG TABLET PO SCH ×3 (05:44→20:23)
[2021-06-12] MEDS: rifAMPin 150 MG CAPSULE PO SCH ×2 (07:47→16:19)
[2021-06-12] MEDS: ceFAZolin 2,000 MG in 0.9 % Sodium Chloride 100 ML IVPB SCH ×2 (07:48→16:19)
[2021-06-12] MEDS: Multivit/Ca/Min/Fe/FA 1 TAB TABLET PO SCH (07:48)
[2021-06-12] MEDS: Cholecalciferol (D-3) 1,000 UNIT (25MCG) TABLET PO SCH (07:48)
[2021-06-12] MEDS: lamoTRIgine 100 MG TABLET PO SCH ×2 (07:48→20:24)
[2021-06-12] MEDS: Carbidopa/Levodopa ER 50/200 TABLET PO SCH ×2 (07:48→20:24)
[2021-06-12] MEDS: Aspirin Enteric Coated 81 MG Tablet PO SCH (07:48)
[2021-06-12] MEDS: Furosemide 40 MG TABLET PO SCH ×2 (07:48→16:19)
[2021-06-12] MEDS: PARoxetine 20 MG TABLET PO SCH (07:48)
[2021-06-13] MEDS: ceFAZolin 2,000 MG in 0.9 % Sodium Chloride 100 ML IVPB SCH ×3 (00:14→17:31)
[2021-06-13] MEDS: *HR* OxyCODONE Immed Rel 5 MG TABLET PO SCH ×3 (05:21→22:25)
[2021-06-13] MEDS: Baclofen 10 MG TABLET PO SCH ×3 (05:22→22:26)
[2021-06-13] MEDS: *HR* Heparin 5,000 UNIT/ML VIAL SQ SCH ×2 (05:22→17:31)
[2021-06-13] MEDS: rifAMPin 150 MG CAPSULE PO SCH ×2 (08:19→16:41)
[2021-06-13] MEDS: PARoxetine 20 MG TABLET PO SCH (08:20)
[2021-06-13] MEDS: Aspirin Enteric Coated 81 MG Tablet PO SCH (08:20)
[2021-06-13] MEDS: Multivit/Ca/Min/Fe/FA 1 TAB TABLET PO SCH (08:20)
[2021-06-13] MEDS: Furosemide 40 MG TABLET PO SCH ×2 (08:20→16:41)
[2021-06-13] MEDS: lamoTRIgine 100 MG TABLET PO SCH ×2 (08:20→22:26)
[2021-06-13] MEDS: Carbidopa/Levodopa ER 50/200 TABLET PO SCH ×2 (08:20→22:26)
[2021-06-13] MEDS: Cholecalciferol (D-3) 1,000 UNIT (25MCG) TABLET PO SCH (08:20)
[2021-06-13] MEDS: *HR* FentaNYL PATCH 50 MCG PATCH TD SCH (22:26)
[2021-06-14] MEDS: ceFAZolin 2,000 MG in 0.9 % Sodium Chloride 100 ML IVPB SCH ×3 (01:33→17:48)
[2021-06-14] MEDS: Baclofen 10 MG TABLET PO SCH ×3 (06:03→21:38)
[2021-06-14] MEDS: *HR* OxyCODONE Immed Rel 5 MG TABLET PO SCH ×3 (06:04→21:39)
[2021-06-14] MEDS: *HR* Heparin 5,000 UNIT/ML VIAL SQ SCH ×2 (06:05→17:48)
[2021-06-14] MEDS: Aspirin Enteric Coated 81 MG Tablet PO SCH (09:49)
[2021-06-14] MEDS: Multivit/Ca/Min/Fe/FA 1 TAB TABLET PO SCH (09:49)
[2021-06-14] MEDS: rifAMPin 150 MG CAPSULE PO SCH ×2 (09:49→15:20)
[2021-06-14] MEDS: Cholecalciferol (D-3) 1,000 UNIT (25MCG) TABLET PO SCH (09:49)
[2021-06-14] MEDS: Furosemide 40 MG TABLET PO SCH ×2 (09:50→15:21)
[2021-06-14] MEDS: PARoxetine 20 MG TABLET PO SCH (09:50)
[2021-06-14] MEDS: Carbidopa/Levodopa ER 50/200 TABLET PO SCH ×2 (09:56→21:39)
[2021-06-14] MEDS: lamoTRIgine 100 MG TABLET PO SCH ×2 (09:57→21:38)
[2021-06-15] MEDS: ceFAZolin 2,000 MG in 0.9 % Sodium Chloride 100 ML IVPB SCH ×4 (01:59→21:14)
[2021-06-15] MEDS: *HR* Heparin 5,000 UNIT/ML VIAL SQ SCH ×2 (05:51→17:33)
[2021-06-15] MEDS: Baclofen 10 MG TABLET PO SCH ×3 (05:51→21:51)
[2021-06-15] MEDS: *HR* OxyCODONE Immed Rel 5 MG TABLET PO SCH ×3 (05:51→21:51)
[2021-06-15] MEDS: rifAMPin 150 MG CAPSULE PO SCH ×2 (10:26→15:09)
[2021-06-15] MEDS: Carbidopa/Levodopa ER 50/200 TABLET PO SCH ×2 (10:26→21:51)
[2021-06-15] MEDS: Cholecalciferol (D-3) 1,000 UNIT (25MCG) TABLET PO SCH (10:27)
[2021-06-15] MEDS: lamoTRIgine 100 MG TABLET PO SCH ×2 (10:27→21:51)
[2021-06-15] MEDS: Aspirin Enteric Coated 81 MG Tablet PO SCH (10:27)
[2021-06-15] MEDS: Multivit/Ca/Min/Fe/FA 1 TAB TABLET PO SCH (10:27)
[2021-06-15] MEDS: PARoxetine 20 MG TABLET PO SCH (10:27)
[2021-06-15] MEDS: Furosemide 40 MG TABLET PO SCH (10:34)
[2021-06-16] MEDS: ceFAZolin 2,000 MG in 0.9 % Sodium Chloride 100 ML IVPB SCH ×3 (02:14→17:54)
[2021-06-16] MEDS: Baclofen 10 MG TABLET PO SCH ×3 (06:35→21:44)
[2021-06-16] MEDS: *HR* Heparin 5,000 UNIT/ML VIAL SQ SCH ×2 (06:35→17:41)
[2021-06-16] MEDS: *HR* OxyCODONE Immed Rel 5 MG TABLET PO SCH ×3 (06:36→21:44)
[2021-06-16] MEDS: rifAMPin 150 MG CAPSULE PO SCH ×2 (07:58→17:41)
[2021-06-16] MEDS: Carbidopa/Levodopa ER 50/200 TABLET PO SCH ×2 (07:59→21:44)
[2021-06-16] MEDS: PARoxetine 20 MG TABLET PO SCH (07:59)
[2021-06-16] MEDS: Aspirin Enteric Coated 81 MG Tablet PO SCH (07:59)
[2021-06-16] MEDS: Cholecalciferol (D-3) 1,000 UNIT (25MCG) TABLET PO SCH (07:59)
[2021-06-16] MEDS: Multivit/Ca/Min/Fe/FA 1 TAB TABLET PO SCH (07:59)
[2021-06-16] MEDS: lamoTRIgine 100 MG TABLET PO SCH ×2 (08:00→21:44)
[2021-06-16] MEDS: Furosemide 40 MG TABLET PO SCH (10:40)
[2021-06-16] MEDS: *HR* FentaNYL PATCH 50 MCG PATCH TD SCH (21:52)
[2021-06-17] MEDS: ceFAZolin 2,000 MG in 0.9 % Sodium Chloride 100 ML IVPB SCH ×3 (02:10→18:03)
[2021-06-17] MEDS: *HR* OxyCODONE Immed Rel 5 MG TABLET PO SCH ×3 (06:15→21:56)
[2021-06-17] MEDS: *HR* Heparin 5,000 UNIT/ML VIAL SQ SCH ×2 (06:15→18:03)
[2021-06-17] MEDS: Baclofen 10 MG TABLET PO SCH ×3 (06:15→21:56)
[2021-06-17] MEDS: rifAMPin 150 MG CAPSULE PO SCH ×2 (07:30→16:46)
[2021-06-17] MEDS: Carbidopa/Levodopa ER 50/200 TABLET PO SCH ×2 (09:46→21:56)
[2021-06-17] MEDS: Furosemide 40 MG TABLET PO SCH (09:46)
[2021-06-17] MEDS: Multivit/Ca/Min/Fe/FA 1 TAB TABLET PO SCH (09:46)
[2021-06-17] MEDS: Cholecalciferol (D-3) 1,000 UNIT (25MCG) TABLET PO SCH (09:46)
[2021-06-17] MEDS: lamoTRIgine 100 MG TABLET PO SCH ×2 (09:46→21:56)
[2021-06-17] MEDS: PARoxetine 20 MG TABLET PO SCH (09:46)
[2021-06-17] MEDS: Aspirin Enteric Coated 81 MG Tablet PO SCH (09:46)
[2021-06-18] MEDS: ceFAZolin 2,000 MG in 0.9 % Sodium Chloride 100 ML IVPB SCH ×3 (01:56→17:54)
[2021-06-18] MEDS: Baclofen 10 MG TABLET PO SCH ×3 (06:14→21:41)
[2021-06-18] MEDS: *HR* Heparin 5,000 UNIT/ML VIAL SQ SCH ×2 (06:14→17:54)
[2021-06-18] MEDS: *HR* OxyCODONE Immed Rel 5 MG TABLET PO SCH ×3 (06:14→21:41)
[2021-06-18 06:16] LABS: Basophils # 0.1 K/mcL (0.0-0.2); Eosinophils # 0.5 K/mcL (0.0-0.6); Eosinophils % 9.1 %; Hematocrit 32.9 % (35.3-44.9); Hemoglobin 10.5 g/dL (11.5-15.4); Immature Granulocytes % 0.2 % (0-4); Lymphocytes # 1.3 K/mcL (0.6-4.6); Lymphocytes % 24.8 %; Mean Corpuscular HGB Conc 31.9 g/dL (31.6-35.5); Mean Corpuscular Hemoglobin 30.2 pg (28.0-33.3); Mean Corpuscular Volume 94.5 fL (83.0-100.0); Mean Platelet Volume 8.4 fL (9.4-12.4); Monocytes # 0.6 K/mcL (0.0-1.3); Monocytes % 11.2 %; Neutrophils # 2.8 K/mcL (1.6-8.9); Platelet Count 270 K/mcL (140-400); Red Blood Count 3.48 M/mcL (3.82-4.97); Red Cell Distribution Width 14.8 % (11.5-14.5); Segmented Neutrophils % 53.7 %; White Blood Count 5.2 K/mcL (4.3-11.1)
[2021-06-18 06:38] LABS: BUN/Creatinine Ratio 23 (6-26); Blood Urea Nitrogen 15 mg/dL (8-23); Calcium 9.3 mg/dL (8.6-10.3); Carbon Dioxide 30 mEq/L (23-29); Chloride 104 mEq/L (98-107); Glucose 85 mg/dL (70-105); Osmolality,Calculated 290 (280-300); Potassium 3.6 mEq/L (3.5-5.1); Sodium 140 mEq/L (136-145); eGFR For African Americans > 60 (> 60); eGFR For Non-African Americans > 60 (> 60)
[2021-06-18] MEDS: rifAMPin 150 MG CAPSULE PO SCH ×2 (07:34→16:54)
[2021-06-18 09:04] LABS: C-Reactive Protein 38 mg/L (Less than 10)
[2021-06-18] MEDS: lamoTRIgine 100 MG TABLET PO SCH ×2 (09:44→21:40)
[2021-06-18] MEDS: Cholecalciferol (D-3) 1,000 UNIT (25MCG) TABLET PO SCH (09:45)
[2021-06-18] MEDS: Furosemide 40 MG TABLET PO SCH (09:45)
[2021-06-18] MEDS: Multivit/Ca/Min/Fe/FA 1 TAB TABLET PO SCH (09:45)
[2021-06-18] MEDS: Carbidopa/Levodopa ER 50/200 TABLET PO SCH ×2 (09:45→21:40)
[2021-06-18] MEDS: Aspirin Enteric Coated 81 MG Tablet PO SCH (09:45)
[2021-06-18] MEDS: PARoxetine 20 MG TABLET PO SCH (09:45)
[2021-06-19] MEDS: ceFAZolin 2,000 MG in 0.9 % Sodium Chloride 100 ML IVPB SCH ×3 (02:12→17:17)
[2021-06-19] MEDS: *HR* OxyCODONE Immed Rel 5 MG TABLET PO SCH ×3 (06:31→21:52)
[2021-06-19] MEDS: *HR* Heparin 5,000 UNIT/ML VIAL SQ SCH ×2 (06:32→17:17)
[2021-06-19] MEDS: Baclofen 10 MG TABLET PO SCH ×3 (06:32→21:52)
[2021-06-19] MEDS: rifAMPin 150 MG CAPSULE PO SCH ×2 (08:57→14:56)
[2021-06-19] MEDS: Aspirin Enteric Coated 81 MG Tablet PO SCH (08:58)
[2021-06-19] MEDS: Multivit/Ca/Min/Fe/FA 1 TAB TABLET PO SCH (08:58)
[2021-06-19] MEDS: PARoxetine 20 MG TABLET PO SCH (08:59)
[2021-06-19] MEDS: Cholecalciferol (D-3) 1,000 UNIT (25MCG) TABLET PO SCH (08:59)
[2021-06-19] MEDS: lamoTRIgine 100 MG TABLET PO SCH ×2 (08:59→21:52)
[2021-06-19] MEDS: Carbidopa/Levodopa ER 50/200 TABLET PO SCH ×2 (08:59→21:52)
[2021-06-19] MEDS: Furosemide 40 MG TABLET PO SCH (08:59)
[2021-06-19] MEDS: *HR* FentaNYL PATCH 50 MCG PATCH TD SCH (21:52)
[2021-06-19] MEDS: tiZANidine 4 MG TABLET PO PRN (22:04)
[2021-06-20] MEDS: ceFAZolin 2,000 MG in 0.9 % Sodium Chloride 100 ML IVPB SCH ×3 (01:21→17:22)
[2021-06-20] MEDS: Baclofen 10 MG TABLET PO SCH ×3 (05:36→21:00)
[2021-06-20] MEDS: *HR* OxyCODONE Immed Rel 5 MG TABLET PO SCH ×3 (05:36→21:01)
[2021-06-20] MEDS: *HR* Heparin 5,000 UNIT/ML VIAL SQ SCH ×2 (05:36→17:16)
[2021-06-20 06:12] LABS: Mean Corpuscular HGB Conc 31.4 g/dL (31.6-35.5); Mean Corpuscular Hemoglobin 30.3 pg (28.0-33.3); Mean Corpuscular Volume 96.4 fL (83.0-100.0); Mean Platelet Volume 8.3 fL (9.4-12.4); Platelet Count 286 K/mcL (140-400); Red Blood Count 3.63 M/mcL (3.82-4.97); Red Cell Distribution Width 14.9 % (11.5-14.5); White Blood Count 5.3 K/mcL (4.3-11.1)
[2021-06-20] MEDS: rifAMPin 150 MG CAPSULE PO SCH ×2 (07:25→17:20)
[2021-06-20] MEDS: PARoxetine 20 MG TABLET PO SCH (07:26)
[2021-06-20] MEDS: lamoTRIgine 100 MG TABLET PO SCH ×2 (07:26→21:01)
[2021-06-20] MEDS: Aspirin Enteric Coated 81 MG Tablet PO SCH (07:26)
[2021-06-20] MEDS: Carbidopa/Levodopa ER 50/200 TABLET PO SCH ×2 (07:27→21:00)
[2021-06-20] MEDS: Multivit/Ca/Min/Fe/FA 1 TAB TABLET PO SCH (07:27)
[2021-06-20] MEDS: Cholecalciferol (D-3) 1,000 UNIT (25MCG) TABLET PO SCH (07:27)
[2021-06-20] MEDS: Furosemide 40 MG TABLET PO SCH (07:28)
[2021-06-20] MEDS: tiZANidine 4 MG TABLET PO PRN (21:01)
[2021-06-21] MEDS: ceFAZolin 2,000 MG in 0.9 % Sodium Chloride 100 ML IVPB SCH ×3 (01:06→17:35)
[2021-06-21] MEDS: Baclofen 10 MG TABLET PO SCH ×3 (05:58→21:08)
[2021-06-21] MEDS: *HR* Heparin 5,000 UNIT/ML VIAL SQ SCH ×2 (05:58→17:34)
[2021-06-21] MEDS: *HR* OxyCODONE Immed Rel 5 MG TABLET PO SCH ×3 (05:59→21:08)
[2021-06-21] MEDS: rifAMPin 150 MG CAPSULE PO SCH ×2 (05:59→16:16)
[2021-06-21] MEDS: PARoxetine 20 MG TABLET PO SCH (09:40)
[2021-06-21] MEDS: Furosemide 40 MG TABLET PO SCH (09:40)
[2021-06-21] MEDS: Cholecalciferol (D-3) 1,000 UNIT (25MCG) TABLET PO SCH (09:40)
[2021-06-21] MEDS: Aspirin Enteric Coated 81 MG Tablet PO SCH (09:40)
[2021-06-21] MEDS: Multivit/Ca/Min/Fe/FA 1 TAB TABLET PO SCH (09:41)
[2021-06-21] MEDS: lamoTRIgine 100 MG TABLET PO SCH ×2 (09:42→21:08)
[2021-06-21] MEDS: Carbidopa/Levodopa ER 50/200 TABLET PO SCH ×2 (09:42→21:08)
[2021-06-21] MEDS: tiZANidine 4 MG TABLET PO PRN (21:10)
[2021-06-22] MEDS: ceFAZolin 2,000 MG in 0.9 % Sodium Chloride 100 ML IVPB SCH ×3 (01:54→17:07)
[2021-06-22] MEDS: *HR* Heparin 5,000 UNIT/ML VIAL SQ SCH ×2 (05:37→17:07)
[2021-06-22] MEDS: Baclofen 10 MG TABLET PO SCH ×3 (05:37→21:09)
[2021-06-22] MEDS: *HR* OxyCODONE Immed Rel 5 MG TABLET PO SCH ×3 (05:38→21:10)
[2021-06-22] MEDS: rifAMPin 150 MG CAPSULE PO SCH ×2 (08:56→17:08)
[2021-06-22] MEDS: Aspirin Enteric Coated 81 MG Tablet PO SCH (08:56)
[2021-06-22] MEDS: lamoTRIgine 100 MG TABLET PO SCH ×2 (08:56→21:08)
[2021-06-22] MEDS: Cholecalciferol (D-3) 1,000 UNIT (25MCG) TABLET PO SCH (08:56)
[2021-06-22] MEDS: PARoxetine 20 MG TABLET PO SCH (08:56)
[2021-06-22] MEDS: Carbidopa/Levodopa ER 50/200 TABLET PO SCH ×2 (08:56→21:09)
[2021-06-22] MEDS: Multivit/Ca/Min/Fe/FA 1 TAB TABLET PO SCH (08:57)
[2021-06-22] MEDS: Furosemide 40 MG TABLET PO SCH (08:57)
[2021-06-22] MEDS: tiZANidine 4 MG TABLET PO PRN (21:09)
[2021-06-22] MEDS: *HR* FentaNYL PATCH 50 MCG PATCH TD SCH (21:10)
[2021-06-23] MEDS: ceFAZolin 2,000 MG in 0.9 % Sodium Chloride 100 ML IVPB SCH ×3 (01:06→17:31)
[2021-06-23] MEDS: *HR* Heparin 5,000 UNIT/ML VIAL SQ SCH ×2 (05:31→17:31)
[2021-06-23] MEDS: *HR* OxyCODONE Immed Rel 5 MG TABLET PO SCH ×3 (05:31→21:17)
[2021-06-23] MEDS: Baclofen 10 MG TABLET PO SCH ×3 (05:31→21:17)
[2021-06-23] MEDS: Multivit/Ca/Min/Fe/FA 1 TAB TABLET PO SCH (07:43)
[2021-06-23] MEDS: rifAMPin 150 MG CAPSULE PO SCH ×2 (07:43→16:15)
[2021-06-23] MEDS: Aspirin Enteric Coated 81 MG Tablet PO SCH (07:43)
[2021-06-23] MEDS: Cholecalciferol (D-3) 1,000 UNIT (25MCG) TABLET PO SCH (07:43)
[2021-06-23] MEDS: PARoxetine 20 MG TABLET PO SCH (07:44)
[2021-06-23] MEDS: Carbidopa/Levodopa ER 50/200 TABLET PO SCH ×2 (07:44→19:54)
[2021-06-23] MEDS: Furosemide 40 MG TABLET PO SCH (07:44)
[2021-06-23] MEDS: lamoTRIgine 100 MG TABLET PO SCH ×2 (07:45→19:54)
[2021-06-23 07:52] LABS: Basophils % 0.6 %; Eosinophils # 0.5 K/mcL (0.0-0.6); Eosinophils % 10.1 %; Hematocrit 36.5 % (35.3-44.9); Hemoglobin 11.2 g/dL (11.5-15.4); Immature Granulocytes % 0.4 % (0-4); Lymphocytes # 1.7 K/mcL (0.6-4.6); Lymphocytes % 33.7 %; Mean Corpuscular HGB Conc 30.7 g/dL (31.6-35.5); Mean Corpuscular Volume 97.9 fL (83.0-100.0); Mean Platelet Volume 8.2 fL (9.4-12.4); Monocytes # 0.5 K/mcL (0.0-1.3); Monocytes % 9.3 %; Neutrophils # 2.3 K/mcL (1.6-8.9); Platelet Count 299 K/mcL (140-400); Red Blood Count 3.73 M/mcL (3.82-4.97); Red Cell Distribution Width 15.4 % (11.5-14.5); Segmented Neutrophils % 45.9 %; White Blood Count 5.1 K/mcL (4.3-11.1)
[2021-06-23 08:16] LABS: BUN/Creatinine Ratio 23 (6-26); Blood Urea Nitrogen 17 mg/dL (8-23); Calcium 9.5 mg/dL (8.6-10.3); Carbon Dioxide 28 mEq/L (23-29); Chloride 105 mEq/L (98-107); Glucose 84 mg/dL (70-105); Osmolality,Calculated 293 (280-300); Potassium 3.9 mEq/L (3.5-5.1); Sodium 141 mEq/L (136-145); eGFR For African Americans > 60 (> 60); eGFR For Non-African Americans > 60 (> 60)
[2021-06-23 12:26] LABS: C-Reactive Protein 25 mg/L (Less than 10)
[2021-06-24] MEDS: ceFAZolin 2,000 MG in 0.9 % Sodium Chloride 100 ML IVPB SCH ×3 (02:00→17:28)
[2021-06-24] MEDS: *HR* Heparin 5,000 UNIT/ML VIAL SQ SCH ×2 (05:48→17:08)
[2021-06-24] MEDS: *HR* OxyCODONE Immed Rel 5 MG TABLET PO SCH ×3 (05:49→20:52)
[2021-06-24] MEDS: Baclofen 10 MG TABLET PO SCH ×3 (05:49→20:53)
[2021-06-24] MEDS: lamoTRIgine 100 MG TABLET PO SCH ×2 (08:51→20:52)
[2021-06-24] MEDS: Carbidopa/Levodopa ER 50/200 TABLET PO SCH ×2 (08:51→20:53)
[2021-06-24] MEDS: Aspirin Enteric Coated 81 MG Tablet PO SCH (08:51)
[2021-06-24] MEDS: Cholecalciferol (D-3) 1,000 UNIT (25MCG) TABLET PO SCH (08:51)
[2021-06-24] MEDS: Multivit/Ca/Min/Fe/FA 1 TAB TABLET PO SCH (08:52)
[2021-06-24] MEDS: rifAMPin 150 MG CAPSULE PO SCH ×2 (08:52→14:45)
[2021-06-24] MEDS: PARoxetine 20 MG TABLET PO SCH (10:19)
[2021-06-24] MEDS: Furosemide 40 MG TABLET PO SCH (10:19)
[2021-06-25] MEDS: ceFAZolin 2,000 MG in 0.9 % Sodium Chloride 100 ML IVPB SCH ×3 (01:11→17:05)
[2021-06-25] MEDS: Baclofen 10 MG TABLET PO SCH ×3 (05:44→20:34)
[2021-06-25] MEDS: *HR* Heparin 5,000 UNIT/ML VIAL SQ SCH ×2 (05:46→16:17)
[2021-06-25] MEDS: *HR* OxyCODONE Immed Rel 5 MG TABLET PO SCH ×3 (05:46→20:34)
[2021-06-25] MEDS: Aspirin Enteric Coated 81 MG Tablet PO SCH (07:55)
[2021-06-25] MEDS: Furosemide 40 MG TABLET PO SCH (07:55)
[2021-06-25] MEDS: PARoxetine 20 MG TABLET PO SCH (07:56)
[2021-06-25] MEDS: Carbidopa/Levodopa ER 50/200 TABLET PO SCH ×2 (07:57→20:35)
[2021-06-25] MEDS: Multivit/Ca/Min/Fe/FA 1 TAB TABLET PO SCH (07:57)
[2021-06-25] MEDS: Cholecalciferol (D-3) 1,000 UNIT (25MCG) TABLET PO SCH (07:57)
[2021-06-25] MEDS: lamoTRIgine 100 MG TABLET PO SCH ×2 (07:57→20:35)
[2021-06-25] MEDS: rifAMPin 150 MG CAPSULE PO SCH ×2 (07:57→16:18)
[2021-06-25] MEDS: *HR* FentaNYL PATCH 50 MCG PATCH TD SCH (20:35)
[2021-06-26] MEDS: ceFAZolin 2,000 MG in 0.9 % Sodium Chloride 100 ML IVPB SCH ×3 (01:41→18:56)
[2021-06-26] MEDS: *HR* Heparin 5,000 UNIT/ML VIAL SQ SCH ×2 (05:46→18:55)
[2021-06-26] MEDS: *HR* OxyCODONE Immed Rel 5 MG TABLET PO SCH ×3 (05:46→22:02)
[2021-06-26] MEDS: Baclofen 10 MG TABLET PO SCH ×3 (05:47→22:02)
[2021-06-26] MEDS: lamoTRIgine 100 MG TABLET PO SCH ×2 (07:52→19:58)
[2021-06-26] MEDS: Multivit/Ca/Min/Fe/FA 1 TAB TABLET PO SCH (07:52)
[2021-06-26] MEDS: Carbidopa/Levodopa ER 50/200 TABLET PO SCH ×2 (07:52→19:58)
[2021-06-26] MEDS: rifAMPin 150 MG CAPSULE PO SCH ×2 (07:53→16:24)
[2021-06-26] MEDS: Furosemide 40 MG TABLET PO SCH (07:53)
[2021-06-26] MEDS: Cholecalciferol (D-3) 1,000 UNIT (25MCG) TABLET PO SCH (07:54)
[2021-06-26] MEDS: PARoxetine 20 MG TABLET PO SCH (07:54)
[2021-06-26] MEDS: Aspirin Enteric Coated 81 MG Tablet PO SCH (07:54)
[2021-06-27] MEDS: ceFAZolin 2,000 MG in 0.9 % Sodium Chloride 100 ML IVPB SCH ×3 (02:33→17:41)
[2021-06-27] MEDS: *HR* OxyCODONE Immed Rel 5 MG TABLET PO SCH ×3 (05:32→21:52)
[2021-06-27] MEDS: Baclofen 10 MG TABLET PO SCH ×3 (05:33→21:52)
[2021-06-27] MEDS: *HR* Heparin 5,000 UNIT/ML VIAL SQ SCH ×2 (05:33→17:41)
[2021-06-27] MEDS: Multivit/Ca/Min/Fe/FA 1 TAB TABLET PO SCH (08:42)
[2021-06-27] MEDS: Aspirin Enteric Coated 81 MG Tablet PO SCH (08:42)
[2021-06-27] MEDS: rifAMPin 150 MG CAPSULE PO SCH ×2 (08:42→16:59)
[2021-06-27] MEDS: PARoxetine 20 MG TABLET PO SCH (08:42)
[2021-06-27] MEDS: lamoTRIgine 100 MG TABLET PO SCH ×2 (08:43→21:53)
[2021-06-27] MEDS: Furosemide 40 MG TABLET PO SCH (08:43)
[2021-06-27] MEDS: Cholecalciferol (D-3) 1,000 UNIT (25MCG) TABLET PO SCH (08:43)
[2021-06-27] MEDS: Carbidopa/Levodopa ER 50/200 TABLET PO SCH ×2 (08:43→21:53)
[2021-06-27] MEDS ORDERED: Ketorolac 30 MG/ML VIAL IVP ONE (10:00)
[2021-06-27] MEDS: tiZANidine 4 MG TABLET PO PRN (21:53)
[2021-06-28] MEDS: ceFAZolin 2,000 MG in 0.9 % Sodium Chloride 100 ML IVPB SCH ×3 (01:09→17:47)
[2021-06-28] MEDS: *HR* OxyCODONE Immed Rel 5 MG TABLET PO SCH ×3 (06:02→21:36)
[2021-06-28] MEDS: *HR* Heparin 5,000 UNIT/ML VIAL SQ SCH ×2 (06:02→17:43)
[2021-06-28] MEDS: Baclofen 10 MG TABLET PO SCH ×3 (06:03→21:35)
[2021-06-28] MEDS: PARoxetine 20 MG TABLET PO SCH (08:02)
[2021-06-28] MEDS: Aspirin Enteric Coated 81 MG Tablet PO SCH (08:02)
[2021-06-28] MEDS: Cholecalciferol (D-3) 1,000 UNIT (25MCG) TABLET PO SCH (08:02)
[2021-06-28] MEDS: Multivit/Ca/Min/Fe/FA 1 TAB TABLET PO SCH (08:02)
[2021-06-28] MEDS: rifAMPin 150 MG CAPSULE PO SCH ×2 (08:02→17:02)
[2021-06-28] MEDS: lamoTRIgine 100 MG TABLET PO SCH ×2 (08:02→20:09)
[2021-06-28] MEDS: Carbidopa/Levodopa ER 50/200 TABLET PO SCH ×2 (08:03→20:09)
[2021-06-28] MEDS: Furosemide 40 MG TABLET PO SCH (08:03)
[2021-06-28] MEDS: *HR* FentaNYL PATCH 50 MCG PATCH TD SCH (20:09)
[2021-06-29] MEDS: ceFAZolin 2,000 MG in 0.9 % Sodium Chloride 100 ML IVPB SCH ×3 (02:00→17:33)
[2021-06-29] MEDS: *HR* OxyCODONE Immed Rel 5 MG TABLET PO SCH ×3 (05:43→21:54)
[2021-06-29] MEDS: *HR* Heparin 5,000 UNIT/ML VIAL SQ SCH ×2 (05:44→17:32)
[2021-06-29] MEDS: Baclofen 10 MG TABLET PO SCH ×3 (05:44→21:53)
[2021-06-29] MEDS: rifAMPin 150 MG CAPSULE PO SCH ×2 (07:56→17:32)
[2021-06-29] MEDS: Cholecalciferol (D-3) 1,000 UNIT (25MCG) TABLET PO SCH (09:04)
[2021-06-29] MEDS: Aspirin Enteric Coated 81 MG Tablet PO SCH (09:04)
[2021-06-29] MEDS: PARoxetine 20 MG TABLET PO SCH (09:04)
[2021-06-29] MEDS: Carbidopa/Levodopa ER 50/200 TABLET PO SCH ×2 (09:04→21:53)
[2021-06-29] MEDS: Furosemide 40 MG TABLET PO SCH (09:04)
[2021-06-29] MEDS: lamoTRIgine 100 MG TABLET PO SCH ×2 (09:05→21:53)
[2021-06-29] MEDS: Multivit/Ca/Min/Fe/FA 1 TAB TABLET PO SCH (09:05)
[2021-06-30] MEDS: ceFAZolin 2,000 MG in 0.9 % Sodium Chloride 100 ML IVPB SCH ×3 (02:11→18:32)
[2021-06-30] MEDS: *HR* Heparin 5,000 UNIT/ML VIAL SQ SCH ×2 (06:15→17:01)
[2021-06-30] MEDS: *HR* OxyCODONE Immed Rel 5 MG TABLET PO SCH ×3 (06:15→21:58)
[2021-06-30] MEDS: Baclofen 10 MG TABLET PO SCH ×3 (06:15→21:57)
[2021-06-30 07:51] LABS: Basophils % 0.8 %; Eosinophils # 0.4 K/mcL (0.0-0.6); Eosinophils % 10.4 %; Hematocrit 35.3 % (35.3-44.9); Hemoglobin 11.1 g/dL (11.5-15.4); Immature Granulocytes % 0.3 % (0-4); Lymphocytes # 1.2 K/mcL (0.6-4.6); Lymphocytes % 30.5 %; Mean Corpuscular HGB Conc 31.4 g/dL (31.6-35.5); Mean Corpuscular Hemoglobin 30.7 pg (28.0-33.3); Mean Corpuscular Volume 97.5 fL (83.0-100.0); Mean Platelet Volume 8.6 fL (9.4-12.4); Monocytes # 0.4 K/mcL (0.0-1.3); Monocytes % 10.4 %; Neutrophils # 1.9 K/mcL (1.6-8.9); Platelet Count 247 K/mcL (140-400); Red Blood Count 3.62 M/mcL (3.82-4.97); Red Cell Distribution Width 15.5 % (11.5-14.5); Segmented Neutrophils % 47.6 %; White Blood Count 3.9 K/mcL (4.3-11.1)
[2021-06-30] MEDS: rifAMPin 150 MG CAPSULE PO SCH ×2 (07:55→17:01)
[2021-06-30 07:59] LABS: BUN/Creatinine Ratio 27 (6-26); Blood Urea Nitrogen 18 mg/dL (8-23); Calcium 9.4 mg/dL (8.6-10.3); Carbon Dioxide 31 mEq/L (23-29); Chloride 105 mEq/L (98-107); Glucose 86 mg/dL (70-105); Osmolality,Calculated 291 (280-300); Potassium 4.1 mEq/L (3.5-5.1); Sodium 140 mEq/L (136-145); eGFR For African Americans > 60 (> 60); eGFR For Non-African Americans > 60 (> 60)
[2021-06-30 08:58] LABS: C-Reactive Protein 20 mg/L (Less than 10)
[2021-06-30] MEDS: Multivit/Ca/Min/Fe/FA 1 TAB TABLET PO SCH (10:00)
[2021-06-30] MEDS: Carbidopa/Levodopa ER 50/200 TABLET PO SCH ×2 (10:00→21:57)
[2021-06-30] MEDS: Aspirin Enteric Coated 81 MG Tablet PO SCH (10:00)
[2021-06-30] MEDS: lamoTRIgine 100 MG TABLET PO SCH ×2 (10:01→21:57)
[2021-06-30] MEDS: Cholecalciferol (D-3) 1,000 UNIT (25MCG) TABLET PO SCH (10:01)
[2021-06-30] MEDS: PARoxetine 20 MG TABLET PO SCH (10:01)
[2021-06-30] MEDS: Furosemide 40 MG TABLET PO SCH (10:01)
[2021-07-01] MEDS: ceFAZolin 2,000 MG in 0.9 % Sodium Chloride 100 ML IVPB SCH ×3 (02:37→17:58)
[2021-07-01] MEDS: Baclofen 10 MG TABLET PO SCH ×3 (06:20→21:50)
[2021-07-01] MEDS: *HR* OxyCODONE Immed Rel 5 MG TABLET PO SCH ×3 (06:20→21:52)
[2021-07-01] MEDS: *HR* Heparin 5,000 UNIT/ML VIAL SQ SCH ×2 (06:21→17:28)
[2021-07-01] MEDS: Aspirin Enteric Coated 81 MG Tablet PO SCH (09:01)
[2021-07-01] MEDS: Cholecalciferol (D-3) 1,000 UNIT (25MCG) TABLET PO SCH (09:01)
[2021-07-01] MEDS: lamoTRIgine 100 MG TABLET PO SCH ×2 (09:01→21:51)
[2021-07-01] MEDS: Furosemide 40 MG TABLET PO SCH (09:01)
[2021-07-01] MEDS: Carbidopa/Levodopa ER 50/200 TABLET PO SCH ×2 (09:02→21:51)
[2021-07-01] MEDS: PARoxetine 20 MG TABLET PO SCH (09:02)
[2021-07-01] MEDS: Multivit/Ca/Min/Fe/FA 1 TAB TABLET PO SCH (09:02)
[2021-07-01] MEDS: rifAMPin 150 MG CAPSULE PO SCH ×2 (09:08→17:27)
[2021-07-01] MEDS: *HR* FentaNYL PATCH 50 MCG PATCH TD SCH (21:52)
[2021-07-02] MEDS: ceFAZolin 2,000 MG in 0.9 % Sodium Chloride 100 ML IVPB SCH ×3 (02:03→18:16)
[2021-07-02] MEDS: *HR* OxyCODONE Immed Rel 5 MG TABLET PO SCH ×3 (06:16→20:42)
[2021-07-02] MEDS: Baclofen 10 MG TABLET PO SCH ×3 (06:16→20:41)
[2021-07-02] MEDS: *HR* Heparin 5,000 UNIT/ML VIAL SQ SCH ×2 (06:17→17:15)
[2021-07-02] MEDS: rifAMPin 150 MG CAPSULE PO SCH ×2 (07:37→17:15)
[2021-07-02] MEDS: Furosemide 40 MG TABLET PO SCH (09:04)
[2021-07-02] MEDS: PARoxetine 20 MG TABLET PO SCH (09:04)
[2021-07-02] MEDS: lamoTRIgine 100 MG TABLET PO SCH ×2 (09:04→20:43)
[2021-07-02] MEDS: Carbidopa/Levodopa ER 50/200 TABLET PO SCH ×2 (09:05→20:41)
[2021-07-02] MEDS: Multivit/Ca/Min/Fe/FA 1 TAB TABLET PO SCH (09:05)
[2021-07-02] MEDS: Aspirin Enteric Coated 81 MG Tablet PO SCH (09:05)
[2021-07-02] MEDS: Cholecalciferol (D-3) 1,000 UNIT (25MCG) TABLET PO SCH (09:05)
[2021-07-03] MEDS: ceFAZolin 2,000 MG in 0.9 % Sodium Chloride 100 ML IVPB SCH ×3 (02:06→16:37)
[2021-07-03] MEDS: *HR* OxyCODONE Immed Rel 5 MG TABLET PO SCH ×3 (06:02→21:14)
[2021-07-03] MEDS: *HR* Heparin 5,000 UNIT/ML VIAL SQ SCH ×2 (06:03→17:26)
[2021-07-03] MEDS: Baclofen 10 MG TABLET PO SCH ×3 (06:03→21:14)
[2021-07-03] MEDS: Aspirin Enteric Coated 81 MG Tablet PO SCH (09:11)
[2021-07-03] MEDS: rifAMPin 150 MG CAPSULE PO SCH ×2 (09:11→14:55)
[2021-07-03] MEDS: PARoxetine 20 MG TABLET PO SCH (09:11)
[2021-07-03] MEDS: lamoTRIgine 100 MG TABLET PO SCH ×2 (09:11→21:14)
[2021-07-03] MEDS: Multivit/Ca/Min/Fe/FA 1 TAB TABLET PO SCH (09:11)
[2021-07-03] MEDS: Furosemide 40 MG TABLET PO SCH (09:12)
[2021-07-03] MEDS: Carbidopa/Levodopa ER 50/200 TABLET PO SCH ×2 (09:12→21:13)
[2021-07-03] MEDS: Cholecalciferol (D-3) 1,000 UNIT (25MCG) TABLET PO SCH (09:12)
[2021-07-03] MEDS ORDERED: Furosemide 20 MG TABLET PO STA (15:22)
[2021-07-04] MEDS: ceFAZolin 2,000 MG in 0.9 % Sodium Chloride 100 ML IVPB SCH ×3 (02:15→17:00)
[2021-07-04] MEDS: Baclofen 10 MG TABLET PO SCH ×3 (05:56→20:46)
[2021-07-04] MEDS: *HR* Heparin 5,000 UNIT/ML VIAL SQ SCH ×2 (05:56→17:00)
[2021-07-04] MEDS: *HR* OxyCODONE Immed Rel 5 MG TABLET PO SCH ×3 (05:56→20:46)
[2021-07-04] MEDS: Aspirin Enteric Coated 81 MG Tablet PO SCH (09:48)
[2021-07-04] MEDS: rifAMPin 150 MG CAPSULE PO SCH ×2 (09:48→16:59)
[2021-07-04] MEDS: Furosemide 40 MG TABLET PO SCH (09:49)
[2021-07-04] MEDS: PARoxetine 20 MG TABLET PO SCH (09:49)
[2021-07-04] MEDS: Multivit/Ca/Min/Fe/FA 1 TAB TABLET PO SCH (09:49)
[2021-07-04] MEDS: lamoTRIgine 100 MG TABLET PO SCH ×2 (09:50→20:46)
[2021-07-04] MEDS: Cholecalciferol (D-3) 1,000 UNIT (25MCG) TABLET PO SCH (09:50)
[2021-07-04] MEDS: Carbidopa/Levodopa ER 50/200 TABLET PO SCH ×2 (09:50→20:46)
[2021-07-04] MEDS: *HR* FentaNYL PATCH 50 MCG PATCH TD SCH (20:47)
[2021-07-05] MEDS: ceFAZolin 2,000 MG in 0.9 % Sodium Chloride 100 ML IVPB SCH ×3 (01:52→18:54)
[2021-07-05] MEDS: *HR* OxyCODONE Immed Rel 5 MG TABLET PO SCH ×3 (05:39→21:47)
[2021-07-05] MEDS: Baclofen 10 MG TABLET PO SCH ×3 (05:39→21:48)
[2021-07-05] MEDS: *HR* Heparin 5,000 UNIT/ML VIAL SQ SCH ×2 (05:40→18:54)
[2021-07-05] MEDS: Multivit/Ca/Min/Fe/FA 1 TAB TABLET PO SCH (10:32)
[2021-07-05] MEDS: PARoxetine 20 MG TABLET PO SCH (10:32)
[2021-07-05] MEDS: Aspirin Enteric Coated 81 MG Tablet PO SCH (10:33)
[2021-07-05] MEDS: Furosemide 40 MG TABLET PO SCH (10:33)
[2021-07-05] MEDS: Carbidopa/Levodopa ER 50/200 TABLET PO SCH ×2 (10:33→21:48)
[2021-07-05] MEDS: rifAMPin 150 MG CAPSULE PO SCH ×2 (10:33→15:58)
[2021-07-05] MEDS: Cholecalciferol (D-3) 1,000 UNIT (25MCG) TABLET PO SCH (10:34)
[2021-07-05] MEDS: lamoTRIgine 100 MG TABLET PO SCH ×2 (10:34→21:48)
[2021-07-06] MEDS: ceFAZolin 2,000 MG in 0.9 % Sodium Chloride 100 ML IVPB SCH ×3 (01:33→15:48)
[2021-07-06] MEDS: *HR* Heparin 5,000 UNIT/ML VIAL SQ SCH (05:56)
[2021-07-06] MEDS: Baclofen 10 MG TABLET PO SCH ×3 (05:56→21:18)
[2021-07-06] MEDS: *HR* OxyCODONE Immed Rel 5 MG TABLET PO SCH ×3 (05:56→21:18)
[2021-07-06] MEDS: Carbidopa/Levodopa ER 50/200 TABLET PO SCH ×2 (08:52→21:18)
[2021-07-06] MEDS: PARoxetine 20 MG TABLET PO SCH (08:52)
[2021-07-06] MEDS: Aspirin Enteric Coated 81 MG Tablet PO SCH (08:52)
[2021-07-06] MEDS: Furosemide 40 MG TABLET PO SCH (08:53)
[2021-07-06] MEDS: Multivit/Ca/Min/Fe/FA 1 TAB TABLET PO SCH (08:53)
[2021-07-06] MEDS: lamoTRIgine 100 MG TABLET PO SCH ×2 (08:53→21:18)
[2021-07-06] MEDS: rifAMPin 150 MG CAPSULE PO SCH ×2 (08:53→15:47)
[2021-07-06] MEDS: Cholecalciferol (D-3) 1,000 UNIT (25MCG) TABLET PO SCH (08:53)
[2021-07-07] MEDS: ceFAZolin 2,000 MG in 0.9 % Sodium Chloride 100 ML IVPB SCH ×3 (02:04→18:29)
[2021-07-07] MEDS: *HR* OxyCODONE Immed Rel 5 MG TABLET PO SCH ×3 (05:56→21:04)
[2021-07-07] MEDS: Baclofen 10 MG TABLET PO SCH ×3 (05:56→21:05)
[2021-07-07 07:27] LABS: Basophils % 0.5 %; Eosinophils # 0.2 K/mcL (0.0-0.6); Eosinophils % 6.1 %; Hematocrit 35.1 % (35.3-44.9); Hemoglobin 11.1 g/dL (11.5-15.4); Immature Granulocytes % 0.5 % (0-4); Lymphocytes % 25.8 %; Mean Corpuscular HGB Conc 31.6 g/dL (31.6-35.5); Mean Corpuscular Hemoglobin 30.2 pg (28.0-33.3); Mean Corpuscular Volume 95.4 fL (83.0-100.0); Mean Platelet Volume 8.7 fL (9.4-12.4); Monocytes # 0.5 K/mcL (0.0-1.3); Monocytes % 12.5 %; Neutrophils # 2.1 K/mcL (1.6-8.9); Platelet Count 231 K/mcL (140-400); Red Blood Count 3.68 M/mcL (3.82-4.97); Red Cell Distribution Width 15.1 % (11.5-14.5); Segmented Neutrophils % 54.6 %; White Blood Count 3.9 K/mcL (4.3-11.1)
[2021-07-07 08:07] LABS: Alanine Aminotransferase < 3 Units/L (7-52); Albumin 3.2 g/dL (3.5-5.7); Alkaline Phosphatase 75 Units/L (34-104); Aspartate Amino Transferase 10 Units/L (13-39); BUN/Creatinine Ratio 22 (6-26); Bilirubin,Total 0.3 mg/dL (0.3-1.0); Blood Urea Nitrogen 15 mg/dL (8-23); Calcium 9.1 mg/dL (8.6-10.3); Carbon Dioxide 29 mEq/L (23-29); Chloride 107 mEq/L (98-107); Globulin 3.1 g/dL (2.4-3.5); Glucose 85 mg/dL (70-105); Osmolality,Calculated 290 (280-300); Potassium 3.9 mEq/L (3.5-5.1); Sodium 140 mEq/L (136-145); Total Protein 6.3 g/dL (6.4-8.9); eGFR For African Americans > 60 (> 60); eGFR For Non-African Americans > 60 (> 60)
[2021-07-07] MEDS: rifAMPin 150 MG CAPSULE PO SCH ×2 (09:29→18:17)
[2021-07-07] MEDS: Aspirin Enteric Coated 81 MG Tablet PO SCH (09:30)
[2021-07-07] MEDS: Multivit/Ca/Min/Fe/FA 1 TAB TABLET PO SCH (09:31)
[2021-07-07] MEDS: Furosemide 40 MG TABLET PO SCH (09:32)
[2021-07-07] MEDS: PARoxetine 20 MG TABLET PO SCH (09:32)
[2021-07-07] MEDS: lamoTRIgine 100 MG TABLET PO SCH ×2 (09:33→21:05)
[2021-07-07] MEDS: Carbidopa/Levodopa ER 50/200 TABLET PO SCH ×2 (09:33→21:04)
[2021-07-07] MEDS: Cholecalciferol (D-3) 1,000 UNIT (25MCG) TABLET PO SCH (09:33)
[2021-07-07 12:54] LABS: C-Reactive Protein 14 mg/L (Less than 10)
[2021-07-07] MEDS: *HR* FentaNYL PATCH 50 MCG PATCH TD SCH (21:05)
[2021-07-08] MEDS: ceFAZolin 2,000 MG in 0.9 % Sodium Chloride 100 ML IVPB SCH ×3 (01:38→17:59)
[2021-07-08] MEDS: *HR* OxyCODONE Immed Rel 5 MG TABLET PO SCH ×3 (05:26→20:43)
[2021-07-08] MEDS: Baclofen 10 MG TABLET PO SCH ×3 (05:26→20:43)
[2021-07-08] MEDS: Carbidopa/Levodopa ER 50/200 TABLET PO SCH ×2 (08:59→20:42)
[2021-07-08] MEDS: PARoxetine 20 MG TABLET PO SCH (09:00)
[2021-07-08] MEDS: rifAMPin 150 MG CAPSULE PO SCH ×2 (09:00→16:31)
[2021-07-08] MEDS: Furosemide 40 MG TABLET PO SCH (09:01)
[2021-07-08] MEDS: Multivit/Ca/Min/Fe/FA 1 TAB TABLET PO SCH (09:01)
[2021-07-08] MEDS: Aspirin Enteric Coated 81 MG Tablet PO SCH (09:01)
[2021-07-08] MEDS: Cholecalciferol (D-3) 1,000 UNIT (25MCG) TABLET PO SCH (09:01)
[2021-07-08] MEDS: lamoTRIgine 100 MG TABLET PO SCH ×2 (09:02→20:43)
[2021-07-09] MEDS: ceFAZolin 2,000 MG in 0.9 % Sodium Chloride 100 ML IVPB SCH ×3 (01:52→17:12)
[2021-07-09] MEDS: rifAMPin 150 MG CAPSULE PO SCH ×2 (05:53→17:12)
[2021-07-09] MEDS: *HR* OxyCODONE Immed Rel 5 MG TABLET PO SCH ×3 (05:53→21:22)
[2021-07-09] MEDS: Baclofen 10 MG TABLET PO SCH ×3 (05:53→21:23)
[2021-07-09] MEDS: PARoxetine 20 MG TABLET PO SCH (09:45)
[2021-07-09] MEDS: Multivit/Ca/Min/Fe/FA 1 TAB TABLET PO SCH (09:46)
[2021-07-09] MEDS: Carbidopa/Levodopa ER 50/200 TABLET PO SCH ×2 (09:46→21:23)
[2021-07-09] MEDS: Aspirin Enteric Coated 81 MG Tablet PO SCH (09:47)
[2021-07-09] MEDS: Furosemide 40 MG TABLET PO SCH (09:47)
[2021-07-09] MEDS: lamoTRIgine 100 MG TABLET PO SCH ×2 (09:47→21:23)
[2021-07-09] MEDS: Cholecalciferol (D-3) 1,000 UNIT (25MCG) TABLET PO SCH (09:47)
[2021-07-10] MEDS: ceFAZolin 2,000 MG in 0.9 % Sodium Chloride 100 ML IVPB SCH ×3 (01:52→18:10)
[2021-07-10] MEDS: Baclofen 10 MG TABLET PO SCH ×3 (05:31→20:58)
[2021-07-10] MEDS: *HR* OxyCODONE Immed Rel 5 MG TABLET PO SCH ×3 (05:31→20:58)
[2021-07-10] MEDS: rifAMPin 150 MG CAPSULE PO SCH ×2 (08:17→14:51)
[2021-07-10] MEDS: Carbidopa/Levodopa ER 50/200 TABLET PO SCH ×2 (08:18→20:59)
[2021-07-10] MEDS: Cholecalciferol (D-3) 1,000 UNIT (25MCG) TABLET PO SCH (08:18)
[2021-07-10] MEDS: Aspirin Enteric Coated 81 MG Tablet PO SCH (08:18)
[2021-07-10] MEDS: Furosemide 40 MG TABLET PO SCH (08:18)
[2021-07-10] MEDS: Multivit/Ca/Min/Fe/FA 1 TAB TABLET PO SCH (08:18)
[2021-07-10] MEDS: PARoxetine 20 MG TABLET PO SCH (08:18)
[2021-07-10] MEDS: lamoTRIgine 100 MG TABLET PO SCH ×2 (08:19→21:00)
[2021-07-10] MEDS: *HR* FentaNYL PATCH 50 MCG PATCH TD SCH (21:00)
[2021-07-11] MEDS: ceFAZolin 2,000 MG in 0.9 % Sodium Chloride 100 ML IVPB SCH (02:09)
[2021-07-11] MEDS: *HR* OxyCODONE Immed Rel 5 MG TABLET PO SCH (06:21)
[2021-07-11] MEDS: Baclofen 10 MG TABLET PO SCH (06:22)
[2021-07-11 07:02] VITALS: BP 95/63; PULSE 64; RESP 18; TEMP 98; O2SAT 95
[2021-07-11] MEDS: rifAMPin 150 MG CAPSULE PO SCH (07:39)
[2021-07-11] MEDS: Aspirin Enteric Coated 81 MG Tablet PO SCH (07:39)
[2021-07-11] MEDS: Cholecalciferol (D-3) 1,000 UNIT (25MCG) TABLET PO SCH (07:40)
[2021-07-11] MEDS: lamoTRIgine 100 MG TABLET PO SCH (07:40)
[2021-07-11] MEDS: Carbidopa/Levodopa ER 50/200 TABLET PO SCH (07:40)
[2021-07-11] MEDS: PARoxetine 20 MG TABLET PO SCH (07:40)
[2021-07-11] MEDS: Furosemide 40 MG TABLET PO SCH (07:40)
[2021-07-11] MEDS: Multivit/Ca/Min/Fe/FA 1 TAB TABLET PO SCH (07:40)
== END 2021-07-11 12:13 | disposition home health service (06) | DRG 949 ==
LOC: INPPIK 15:39
PROVIDERS: ADMIT Internal Medicine; ATTEND Internal Medicine